=== PATIENT | male | born 1935 | race Caucasian/White ===

== ENCOUNTER 2017-12-08 13:15 | Emergency (ER) | payer MEDICARE, OTHER ==
[2017-12-08] MEDS ORDERED: Sulfamethoxazole/Trimethoprim 800-160 MG Tab PO ONE (14:53)
--- NOTE | 2017-12-09 01:00 | ER ---
DATE SEEN: 12/08/2017 REASON FOR VISIT: Swelling of the leg. HISTORY OF PRESENT ILLNESS: This is an 82-year-old male with swelling of the right leg for the last week or so. The swelling has been associated with redness and weeping wounds. This morning, he developed chills and felt hot. REVIEW OF SYSTEMS: He has chronic shortness of breath. He denies headache or chest pain. PAST MEDICAL HISTORY: CHF, he had a stroke in October of 2017, chronic renal failure with a creatinine of 1.6 baseline, BPH, CAD, and peripheral vascular disease. ALLERGIES: None. MEDICATIONS: Medications were printed from the [facility], and they are noted in the electronic record. PHYSICAL EXAMINATION: GENERAL: He is not in any cardiopulmonary distress. VITAL SIGNS: He has a normal temperature, pulse of 78, blood pressure is normal, and oxygenation 91% on room air. ENT: Normal. Neck: No JVD. CHEST: End-expiratory rhonchi. CARDIOVASCULAR: Regularly irregular rhythm. No murmurs. EXTREMITIES: Ceqd-md-wgltuwsk peripheral edema. The right leg has redness, tenderness, and blisters and is slightly warm. LABORATORIES: White cell count 12.2. CRP is 3.3. Creatinine is 2.1. BNP is pending. IMPRESSION: 1. Cellulitis, right lower extremity. 2. Congestive heart failure. 3. Peripheral vascular disease. PLAN: 1. The patient is already on Eliquis and Lasix. I increased the Lasix to 40 mg b.i.d. 2. I started Bactrim DS 1 tablet b.i.d. 3. I recommended elevation of the legs, compression with wrapping, and a followup to be arranged with Dr. Newell tomorrow. TIME SEEN: 1450 hours. /[id number] TN/MODL
== END 2017-12-08 15:15 | disposition home or self-care (01) ==
LOC: FB.ED 13:15
DX: L03.115 Cellulitis of right lower limb (principal); I50.9 Heart failure, unspecified; I73.9 Peripheral vascular disease, unspecified; N18.9 Chronic kidney disease, unspecified
CPT/HCPCS: 16020; 36415; 80053; 83880; 85025; 86140; 99283; A9270

== ENCOUNTER 2017-12-09 17:17 | Inpatient (IN) | payer MEDICARE, OTHER ==
[2017-12-09] MEDS ORDERED: Acetaminophen 325 MG Tab PO PRN (17:59)
[2017-12-09] MEDS ORDERED: Ondansetron 4 MG Tab.DIS PO PRN (17:59)
--- NOTE | 2017-12-09 18:09 | PCM.HP ---
H&P History of Present Illness - General Date of Service: 12/09/17 Admit Problem/Dx: Admission Diagnosis/Problem Admission Diagnosis/Problem Cellulitis Source of Information: Patient, Old Records History Limitations: Reports: No Limitations - History of Present Illness Initial Comments - Free Text/Narative: Been ordered is an 82-year-old male that came into the clinic to see Dr. Newell because of fever, chills and redness of both legs. I had seen him here at the hospital yesterday treated him for cellulitis, with oral Bactrim.I also increased his Lasix dose,due to CHF exacerbation, but his symptoms have worsened. His right leg is worse than the left ,in terms or redness,and swelling. His symptoms started insidiously and have progressively gotten worse since Friday. He has a history of severe peripheral vascular disease, CHF ,both poorly controlled & chronic kidney disease with a baseline creatinine of 1.5. He has stable hypertension. Of note he was recently hospitalized at [facility] because of left acute ischemic MCA stroke. He recovered fairly well and is currently on long-term anticoagulation -Eliquis. - Related Data Allergies/Adverse Reactions: Allergies Allergy/AdvReac Type Severity Reaction Status Date / Time No Known Allergies Allergy Verified 12/09/17 17:46 Home Medications: Home Meds Acetaminophen [Tylenol] 325 mg PO Q4H PRN 12/08/17 [History] Apixaban [Eliquis] 2.5 mg PO BID 12/08/17 [History] Aspirin 81 mg PO DAILY 12/08/17 [History] Cholecalciferol (Vitamin D3) [Vitamin D3] 2,000 unit PO DAILY 12/08/17 [History] Docusate Sodium [Colace] 100 mg PO DAILY 12/08/17 [History] Finasteride [Proscar] 5 mg PO DAILY 12/08/17 [History] Furosemide [Lasix] 40 mg PO DAILY 12/08/17 [History] Metoprolol Succinate [Toprol XL] 25 mg PO DAILY 12/08/17 [History] Multivit-Min/FA/Lycopene/Lut [Centrum Silver Tablet] 1 tab PO DAILY 12/08/17 [ History] Tamsulosin [Flomax] 0.8 mg PO BEDTIME 12/08/17 [History] atorvaSTATin [Lipitor] 40 mg PO DAILY 12/08/17 [History] Past Medical History HEENT History: Reports: Hard of Hearing, Impaired Vision Respiratory History: Reports: SOB Neurological History: Reports: CVA Other Neuro History: November 02, 2017-stroke Social & Family History - Family History Family Medical History: Unobtainable - Tobacco Use Smoking Status *Q: Never Smoker Second Hand Smoke Exposure: No - Caffeine Use Caffeine Use: Reports: Coffee - Recreational Drug Use Recreational Drug Use: No H&P Review of Systems - Review of Systems: Review Of Systems: ROS reveals no pertinent complaints other than HPI. Exam - Exam Exam: See Below - Vital Signs Weight: 91.172 kg - Exam Quality Assessment: No: Supplemental Oxygen General: Alert, Oriented, 4 HEENT: PERRLA, Hearing Intact, Mucosa Moist & [place], Nares Patent, Normal Nasal Septum, Posterior Pharynx Clear, Conjunctiva Clear, EOMI, EACs Clear, TMs Clear Neck: Supple, Trachea Midline, 2 Lungs: Crackles, Rales Cardiovascular: Regular Rate, Regular Rhythm GI/Abdominal Exam: Normal Bowel Sounds, Soft, Non-Tender, No Organomegaly, No Distention, No Abnormal Bruit, No Mass, Pelvis Stable (Male) Exam: Deferred Rectal (Males) Exam: Deferred Back Exam: Normal Inspection, Full Range of Motion, NT Extremities: Pedal Edema, Increased Warmth, Mottled, Redness Skin: Warm, Dry, Intact Neurological: Cranial Nerves Intact, Reflexes Equal Bilateral Neuro Extensive - Mental Status: Alert, Oriented x3, Normal Mood/Affect, Normal Cognition Neuro Extensive - Motor, Sensory, Reflexes: CN II-XII Intact, Normal Gait, Normal Reflexes Psychiatric: Alert, Normal Affect, Normal Mood - Problem List (1) Cellulitis SNOMED Code(s): 657005106 ICD Code: L03.90 - CELLULITIS, UNSPECIFIED Status: Acute Current Visit: Yes Qualifiers: Site of cellulitis: extremity Laterality: unspecified laterality (2) HTN (hypertension) SNOMED Code(s): 98275430 ICD Code: I10 - ESSENTIAL (PRIMARY) HYPERTENSION Status: Acute Current Visit: Yes Qualifiers: Hypertension type: essential hypertension Qualified Code(s): I10 - Essential (primary) hypertension (3) CHF (congestive heart failure) SNOMED Code(s): 24607057 ICD Code: I50.9 - HEART FAILURE, UNSPECIFIED Status: Acute Current Visit : Yes Qualifiers: Heart failure type: systolic (4) CKD (chronic kidney disease) SNOMED Code(s): 635372714 ICD Code: N18.9 - CHRONIC KIDNEY DISEASE, UNSPECIFIED Status: Chronic Current Visit: Yes Qualifiers: Chronic kidney disease stage: stage 3 (moderate) Qualified Code(s): N18.3 - Chronic kidney disease, stage 3 (moderate) (5) PAD (peripheral artery disease) SNOMED Code(s): 527825417, 317831606 ICD Code: I73.9 - PERIPHERAL VASCULAR DISEASE, UNSPECIFIED Status: Chronic Current Visit: Yes (6) H/O: CVA (cerebrovascular accident) SNOMED Code(s): 507338097 ICD Code: Z86.73 - PRSNL HX OF TIA (TIA), AND CEREB INFRC W/O RESID DEFICITS Status: Acute Current Visit: Yes (7) Afib SNOMED Code(s): 86012107 ICD Code: I48.91 - UNSPECIFIED ATRIAL FIBRILLATION Status: Acute Current Visit: Yes Qualifiers: Atrial fibrillation type: persistent Qualified Code(s): I48.1 - Persistent atrial fibrillation (8) CAD (coronary artery disease) SNOMED Code(s): 71368487 ICD Code: I25.10 - ATHSCL HEART DISEASE OF [place] CORONARY ARTERY W/O ANG PCTRS Status: Chronic Current Visit: Yes Qualifiers: Coronary Disease-Associated Artery/Lesion type: bypass graft (9) HLD (hyperlipidemia) SNOMED Code(s): 87615505 ICD Code: E78.5 - HYPERLIPIDEMIA, UNSPECIFIED Status: Chronic Current Visit: Yes Qualifiers: Hyperlipidemia type: unspecified Qualified Code(s): E78.5 - Hyperlipidemia , unspecified (10) LAWRENCE (obstructive sleep apnea) SNOMED Code(s): 34476685 ICD Code: G47.33 - OBSTRUCTIVE SLEEP APNEA (ADULT) (PEDIATRIC) Status: Acute Current Visit: Yes (11) Anticoagulant long-term use SNOMED Code(s): 369313873 ICD Code: Z79.01 - MCFP (CURRENT) USE OF ANTICOAGULANTS Status: Acute Current Visit: Yes (12) BPH (benign prostatic hyperplasia) SNOMED Code(s): 364858354 ICD Code: N40.0 - BENIGN PROSTATIC HYPERPLASIA WITHOUT LOWER URINRY TRACT SYMP Status: Acute Current Visit: Yes Qualifiers: Lower urinary tract symptom presence: symptoms present Lower urinary tract symptom detail: unspecified Qualified Code(s): N40.1 - Benign prostatic hyperplasia with lower urinary tract symptoms Problem List Initiated/Reviewed/Updated: Yes Orders Last 24hrs: Active Orders 24 hr Category Date Time Status Patient Status [ADT] Routine ADT 12/09/17 18:00 Ordered EKG Documentation Completion [RC] ASDIRECTED Care 12/09/17 18:02 Ordered Height and Weight [RC] DAILY Care 12/09/17 17:59 Ordered Intake and Output [RC] QSHIFT Care 12/09/17 18:00 Ordered Oxygen Therapy [RC] PRN Care 12/09/17 18:00 Ordered Up to Chair [RC] ASDIRECTED Care 12/09/17 17:59 Ordered VTE/DVT Education [RC] Per Unit Routine Care 12/09/17 18:00 Ordered Vital Signs [RC] Q4H Care 12/09/17 18:00 Ordered Heart Healthy Diet [DIET] Diet 12/09/17 Breakfast Ordered Chest 2V [CR] Stat Exams 12/09/17 17:59 Ordered BASIC METABOLIC PANEL,BMP [CHEM] AM Lab 12/10/17 05:11 Ordered BASIC METABOLIC PANEL,BMP [CHEM] Stat Lab 12/09/17 17:59 Ordered CBC WITH AUTO DIFF [HEME] AM Lab 12/10/17 05:11 Ordered CBC WITH AUTO DIFF [HEME] Stat Lab 12/09/17 17:59 Ordered CULTURE BLOOD [BC] Urgent Lab 12/09/17 18:02 Ordered CULTURE BLOOD [BC] Urgent Lab 12/09/17 18:02 Ordered PRO B-TYPE NATRIUR PEPT,BNPPRO [CHEM] DAILY Lab 12/10/17 05:11 Ordered PRO B-TYPE NATRIUR PEPT,BNPPRO [CHEM] DAILY Lab 12/11/17 05:11 Ordered PRO B-TYPE NATRIUR PEPT,BNPPRO [CHEM] DAILY Lab 12/12/17 05:11 Ordered Acetaminophen [Tylenol] Med 12/09/17 17:59 Ordered 650 mg PO Q4H PRN Ondansetron [Zofran ODT] Med 12/09/17 17:59 Ordered 4 mg PO Q4H PRN Sodium Chloride 0.9% [Saline Flush] Med 12/09/17 17:59 Ordered 10 ml FLUSH ASDIRECTED PRN Vancomycin 1,000 mg Med 12/09/17 18:00 Ordered Sodium Chloride 0.9% [Normal Saline] 250 ml IV Q12H ceFAZolin [Ancef] 2 gm Med 12/09/17 18:00 Ordered Premix Bag 1 bag IV Q8H Blood Culture x2 Reflex Set [OM.PC] Urgent Oth 12/09/17 17:59 Ordered Peripheral IV Insertion Adult [OM.PC] Routine Oth 12/09/17 17:59 Ordered Resuscitation Status Routine Resus Stat 12/09/17 17:59 Ordered EKG 12 Lead [EK] Stat Ther 12/09/17 17:59 Ordered Medication Orders Acetaminophen (Tylenol) 650 mg PO Q4H PRN PRN Reason: Pain (Mild 1-3)/fever Cefazolin Sodium/Dextrose 2 gm (/ Premix) 50 mls @ 100 mls/hr IV Q8H ANIA Vancomycin HCl 1,000 mg/ (Sodium Chloride) 250 mls @ 167 mls/hr IV Q12H ANIA Ondansetron HCl (Zofran Odt) 4 mg PO Q4H PRN PRN Reason: nausea, able to take PO Sodium Chloride (Saline Flush) 10 ml FLUSH ASDIRECTED PRN PRN Reason: Keep Vein Open Assessment/Plan Comment:: We'll admit Mr. Dunbar for IV antibiotic therapy. Before initiation, of ordered for 2 sets of blood cultures and a repeat blood count. I will start with Ancef and vancomycin(to be dosed by pharmacy) to cover for possibility of MRSA. Also give him IV diuresis,with Lasix. The rest of his home medications will be continued as appropriate.
[2017-12-09] MEDS: Furosemide 40 MG/4 ML VIAL IVPUSH SCH (19:08)
[2017-12-09] MEDS: ceFAZolin 2 GM in Premix Bag 1 BAG IV SCH (19:11)
[2017-12-09] MEDS: Sodium Chloride 0.9% 10 ML Syringe FLUSH PRN ×4 (19:12→22:35)
[2017-12-09] MEDS ORDERED: Apixaban 2.5 MG Tab PO SCH (21:45)
[2017-12-10] MEDS: ceFAZolin 2 GM in Premix Bag 1 BAG IV SCH ×2 (02:28→09:49)
[2017-12-10] MEDS: Sodium Chloride 0.9% 10 ML Syringe FLUSH PRN ×8 (03:01→22:49)
[2017-12-10] MEDS ORDERED: Metolazone 5 MG Tab PO ONE (08:06)
--- NOTE | 2017-12-10 08:09 | PCM.PN ---
- General Info Date of Service: 12/10/17 Subjective Update: Mr. Dunbar slept well overnight. He has no fever or chills neither does he have any chest pain. He is intermittently short of breath. The leg swelling and redness persists. - Review of Systems HEENT: Reports: No Symptoms Gastrointestinal: Reports: No Symptoms Genitourinary: Reports: No Symptoms - Patient Data Vitals - Most Recent: Last Vital Signs Temp 97.6 F 12/10/17 02:00 Pulse 52 L 12/10/17 02:00 Resp 18 12/10/17 02:00 BP 127/68 12/10/17 02:00 Pulse Ox 96 12/10/17 02:00 Weight - Most Recent: 90.718 kg I&O - Last 24 Hours: Intake & Output 12/09/17 12/10/17 12/10/17 22:59 06:59 14:59 Intake Total 700 200 Output Total 450 Balance 700 -250 Lab Results Last 24 Hours: Laboratory Results - last 24 hr 12/09/17 12/09/17 12/10/17 Range/Units 18:25 18:25 06:34 WBC 11.8 10.7 (4.5-12.0) X10-3/uL RBC 4.47 4.40 (4.30-5.75) x10(6)uL Hgb 14.6 14.4 (11.5-15.5) g/dL Hct 43.3 43.4 (30.0-51.3) % MCV 96.8 H 98.7 H (80-96) fL MCH 32.6 32.8 (27.7-33.6) pg MCHC 33.6 33.2 (32.2-35.4) g/dL RDW 14.0 14.1 (11.5-15.5) % Plt Count 88 L 90 L (125-369) X10(3)uL MPV 11.0 H 11.3 H (7.4-10.4) fL Neut % (Auto) 84.8 H (46-82) % Lymph % (Auto) 5.7 L (13-37) % [place] % (Auto) 8.8 (4-12) % Eos % (Auto) 0 L (1.0-5.0) % Baso % (Auto) 0 (0-2) % Neut # (Auto) 10.1 H (1.6-8.3) # Lymph # (Auto) 0.7 (0.6-5.0) # [place] # (Auto) 1.0 (0.0-1.3) # Eos # (Auto) 0.0 (0.0-0.8) # Baso # (Auto) 0.0 (0.0-0.2) # Add Manual Diff Yes Neutrophils % (Manual) 89 H (46-82) % Lymphocytes % (Manual) 5 L (13-37) % Monocytes % (Manual) 6 (4-12) % Polychromasia Sodium 139 (135-145) mmol/L Potassium 3.5 (3.5-5.3) mmol/L Chloride 100 (100-110) mmol/L Carbon Dioxide 29 (21-32) mmol/L BUN 50 H (7-18) mg/dL Creatinine 2.2 H* (0.70-1.30) mg/dL Est Cr Clr Drug Dosing 30.10 mL/min Estimated GFR (MDRD) 29 L (>60) BUN/Creatinine Ratio 22.7 H (9-20) Glucose 108 (80-116) mg/dL Calcium 9.4 (8.6-10.2) mg/dL NT-Pro-B Natriuret Pep (<=450) pg/mL 12/10/17 12/10/17 Range/Units 06:34 06:34 WBC (4.5-12.0) X10-3/uL RBC (4.30-5.75) x10(6)uL Hgb (11.5-15.5) g/dL Hct (30.0-51.3) % MCV (80-96) fL MCH (27.7-33.6) pg MCHC (32.2-35.4) g/dL RDW (11.5-15.5) % Plt Count (125-369) X10(3)uL MPV (7.4-10.4) fL Neut % (Auto) (46-82) % Lymph % (Auto) (13-37) % [place] % (Auto) (4-12) % Eos % (Auto) (1.0-5.0) % Baso % (Auto) (0-2) % Neut # (Auto) (1.6-8.3) # Lymph # (Auto) (0.6-5.0) # [place] # (Auto) (0.0-1.3) # Eos # (Auto) (0.0-0.8) # Baso # (Auto) (0.0-0.2) # Add Manual Diff Neutrophils % (Manual) (46-82) % Lymphocytes % (Manual) (13-37) % Monocytes % (Manual) (4-12) % Polychromasia Sodium 140 (135-145) mmol/L Potassium 3.5 (3.5-5.3) mmol/L Chloride 101 (100-110) mmol/L Carbon Dioxide 29 (21-32) mmol/L BUN 50 H (7-18) mg/dL Creatinine 2.3 H* (0.70-1.30) mg/dL Est Cr Clr Drug Dosing 28.79 mL/min Estimated GFR (MDRD) 27 L (>60) BUN/Creatinine Ratio 21.7 H (9-20) Glucose 100 (80-116) mg/dL Calcium 9.1 (8.6-10.2) mg/dL NT-Pro-B Natriuret Pep 44717 H* (<=450) pg/mL Med Orders - Current: Current Medications Acetaminophen (Tylenol) 650 mg PO Q4H PRN PRN Reason: Pain (Mild 1-3)/fever Last Admin: 12/09/17 20:55 Dose: 650 mg Apixaban (Eliquis) 2.5 mg PO BID ANIA Last Admin: 12/09/17 22:28 Dose: 2.5 mg Furosemide (Lasix) 40 mg IVPUSH BIDDIURETIC [facility] Last Admin: 12/09/17 19:08 Dose: 40 mg Cefazolin Sodium/Dextrose 2 gm (/ Premix) 50 mls @ 100 mls/hr IV Q8H [facility] Last Admin: 12/10/17 02:28 Dose: 100 mls/hr Vancomycin HCl 1,000 mg/ (Sodium Chloride) 250 mls @ 167 mls/hr IV Q12H [facility] Vancomycin HCl 1,000 mg/Vancomycin HCl 500 mg/ Sodium Chloride 500 mls @ 333.333 mls/hr IV Q36H [facility] Metolazone (Zaroxolyn) 5 mg PO ONETIME ONE Stop: 12/10/17 08:07 Ondansetron HCl (Zofran Odt) 4 mg PO Q4H PRN PRN Reason: nausea, able to take PO Sodium Chloride (Saline Flush) 10 ml FLUSH ASDIRECTED PRN PRN Reason: Keep Vein Open Last Admin: 12/10/17 03:01 Dose: 10 ml Tamsulosin HCl (Flomax) 0.8 mg PO BEDTIME ANIA Discontinued Medications Vancomycin HCl 1,000 mg/Vancomycin HCl 500 mg/ Sodium Chloride 500 mls @ 333.333 mls/hr IV ONETIME ONE Stop: 12/09/17 20:29 Last Admin: 12/09/17 20:45 Dose: 333.333 mls/hr - Exam Quality Assessment: No: Supplemental Oxygen General: Alert, Oriented HEENT: Pupils Equal Lungs: Clear to Auscultation, Rales Cardiovascular: Irregular Rhythm GI/Abdominal Exam: Normal Bowel Sounds, Soft, Non-Tender, No Organomegaly, No Distention, No Abnormal Bruit, No Mass, Pelvis Stable Extremities: Pedal Edema, Slow Capillary Refill, Leg Pain, Mottled, Pallor, Redness Psy/Mental Status: Alert, Normal Affect, Normal Mood - Problem List & Annotations (1) Cellulitis SNOMED Code(s): 805013775 Code(s): L03.90 - CELLULITIS, UNSPECIFIED Status: Acute Current Visit: Yes Qualifiers: Site of cellulitis: extremity Laterality: unspecified laterality (2) HTN (hypertension) SNOMED Code(s): 72959687 Code(s): I10 - ESSENTIAL (PRIMARY) HYPERTENSION Status: Acute Current Visit: Yes Qualifiers: Hypertension type: essential hypertension Qualified Code(s): I10 - Essential (primary) hypertension (3) CHF (congestive heart failure) SNOMED Code(s): 62380055 Code(s): I50.9 - HEART FAILURE, UNSPECIFIED Status: Acute Current Visit: Yes Qualifiers: Heart failure type: systolic (4) CKD (chronic kidney disease) SNOMED Code(s): 997616889 Code(s): N18.9 - CHRONIC KIDNEY DISEASE, UNSPECIFIED Status: Chronic Current Visit: Yes Qualifiers: Chronic kidney disease stage: stage 3 (moderate) Qualified Code(s): N18.3 - Chronic kidney disease, stage 3 (moderate) (5) PAD (peripheral artery disease) SNOMED Code(s): 157583087, 256184539 Code(s): I73.9 - PERIPHERAL VASCULAR DISEASE, UNSPECIFIED Status: Chronic Current Visit: Yes (6) H/O: CVA (cerebrovascular accident) SNOMED Code(s): 704037681 Code(s): Z86.73 - PRSNL HX OF TIA (TIA), AND CEREB INFRC W/O RESID DEFICITS Status: Acute Current Visit: Yes (7) Afib SNOMED Code(s): 27874843 Code(s): I48.91 - UNSPECIFIED ATRIAL FIBRILLATION Status: Acute Current Visit: Yes Qualifiers: Atrial fibrillation type: persistent Qualified Code(s): I48.1 - Persistent atrial fibrillation (8) CAD (coronary artery disease) SNOMED Code(s): 28681475 Code(s): I25.10 - ATHSCL HEART DISEASE OF [place] CORONARY ARTERY W/O ANG PCTRS Status: Chronic Current Visit: Yes Qualifiers: Coronary Disease-Associated Artery/Lesion type: bypass graft (9) HLD (hyperlipidemia) SNOMED Code(s): 20546281 Code(s): E78.5 - HYPERLIPIDEMIA, UNSPECIFIED Status: Chronic Current Visit: Yes Qualifiers: Hyperlipidemia type: unspecified Qualified Code(s): E78.5 - Hyperlipidemia , unspecified (10) LAWRENCE (obstructive sleep apnea) SNOMED Code(s): 25287336 Code(s): G47.33 - OBSTRUCTIVE SLEEP APNEA (ADULT) (PEDIATRIC) Status: Acute Current Visit: Yes (11) Anticoagulant long-term use SNOMED Code(s): 048016077 Code(s): Z79.01 - SHELTER (CURRENT) USE OF ANTICOAGULANTS Status: Acute Current Visit: Yes (12) BPH (benign prostatic hyperplasia) SNOMED Code(s): 648105986 Code(s): N40.0 - BENIGN PROSTATIC HYPERPLASIA WITHOUT LOWER URINRY TRACT SYMP Status: Acute Current Visit: Yes Qualifiers: Lower urinary tract symptom presence: symptoms present Lower urinary tract symptom detail: unspecified Qualified Code(s): N40.1 - Benign prostatic hyperplasia with lower urinary tract symptoms - Problem List Review Problem List Initiated/Reviewed/Updated: Yes - My Orders Last 24 Hours: My Active Orders 12/09/17 17:59 Height and Weight [RC] 07 Up to Chair [RC] 09,13,17,21 Chest 2V [CR] Stat Acetaminophen [Tylenol] 650 mg PO Q4H PRN Ondansetron [Zofran ODT] 4 mg PO Q4H PRN Sodium Chloride 0.9% [Saline Flush] 10 ml FLUSH ASDIRECTED PRN Blood Culture x2 Reflex Set [OM.PC] Urgent Peripheral IV Insertion Adult [OM.PC] Routine Resuscitation Status Routine EKG 12 Lead [EK] Stat 12/09/17 18:00 Patient Status [ADT] Routine Intake and Output [RC] 06,14,22 Oxygen Therapy [RC] PRN VTE/DVT Education [RC] Per Unit Routine Vital Signs [RC] 04,08,12,16,20,00 Vancomycin 1,000 mg Sodium Chloride 0.9% [Normal Saline] 250 ml IV Q12H ceFAZolin [Ancef] 2 gm Premix Bag 1 bag IV Q8H 12/09/17 18:02 EKG Documentation Completion [RC] ASDIRECTED 12/09/17 18:25 CULTURE BLOOD [BC] Urgent 12/09/17 18:30 Furosemide [Lasix] 40 mg IVPUSH BIDDIURETIC 12/09/17 18:35 CULTURE BLOOD [BC] Urgent 12/09/17 21:45 Apixaban [Eliquis] 2.5 mg PO BID 12/10/17 08:06 Metolazone [Zaroxolyn] 5 mg PO ONETIME ONE 12/10/17 21:00 Tamsulosin [Flomax] 0.8 mg PO BEDTIME 12/11/17 05:11 BASIC METABOLIC PANEL,BMP [CHEM] AM CBC WITH AUTO DIFF [HEME] AM PRO B-TYPE NATRIUR PEPT,BNPPRO [CHEM] DAILY 12/11/17 07:00 Vancomycin 1,000 mg Vancomycin 500 mg Sodium Chloride 0.9% [Normal Saline] 500 ml IV Q36H 12/12/17 05:11 PRO B-TYPE NATRIUR PEPT,BNPPRO [CHEM] DAILY - Plan Plan:: BNP is markedly elevated. I will continued IV Lasix and add one-time dose of Zaroxolyn. His Echo from October showes global hypokinesis and EF of 20%.I'll continue this current treatment of vancomycin dosed by pharmacy, and Ancef every 8 hours. I did recommend elevation of the extremities, and will plan to follow basic profile CBC and BNP in the morning.
[2017-12-10] MEDS: Aspirin 81 MG Tab.Chew PO SCH (09:35)
[2017-12-10] MEDS: Cholecalciferol (Vitamin D3) 1,000 Unit Tab PO SCH (09:36)
[2017-12-10] MEDS: Finasteride 5 MG Tab PO SCH (09:36)
[2017-12-10] MEDS: Apixaban 5 MG Tab PO SCH ×2 (09:36→20:47)
[2017-12-10] MEDS: Docusate Sodium 100 MG Cap PO SCH (09:36)
[2017-12-10] MEDS: Metoprolol Succinate 25 MG Tab.ER PO SCH (09:36)
[2017-12-10] MEDS: Furosemide 40 MG/4 ML VIAL IVPUSH SCH ×2 (09:49→14:17)
--- NOTE | 2017-12-10 12:13 | CR ---
INDICATION: Short of breath. CHEST: PA and lateral views of the chest were obtained 12-09-17. No comparison was available. Bibasilar pleural parenchymal changes are noted likely representing pneumonia and pleuritis. However the upper lung pulmonary vasculature is somewhat prominent and the heart is enlarged with mitral valve replacement-median sternotomy. The possibility of CHF is also a consideration. Infiltration also appears to be minimal in the right upper lobe with pleuritis, there should be some thickening of the minor fissure. Bridging hyperostotic changes noted in the mid to lower thoracic spine. Hyperaeration, prominent PA diameter, and flattened diaphragm leaves suggest COPD. IMPRESSION: 1. ASHD, cardiomegaly, mitral valve replacement with possible CHF. 2. Bibasilar pleural parenchymal changes made on the basis of pneumonia and pleuritis-correlate clinically. 3. 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 5. Probable minimal patchy pneumonia and pleuritis in the right upper lobe. MTDD
[2017-12-10] MEDS: Acetaminophen 325 MG Tab PO PRN (16:54)
[2017-12-10] MEDS: Tamsulosin 0.4 MG Cap.ER PO SCH (20:48)
[2017-12-10] MEDS: Vancomycin 500 MG, Vancomycin 750 MG in Sodium Chloride 0.9% 250 ML IV SCH (20:58)
[2017-12-10] MEDS: ceFAZolin 1 GM Vial IVPUSH SCH (21:21)
[2017-12-11] MEDS: Apixaban 5 MG Tab PO SCH ×2 (08:17→20:35)
[2017-12-11] MEDS: Aspirin 81 MG Tab.Chew PO SCH (08:17)
[2017-12-11] MEDS: Furosemide 40 MG/4 ML VIAL IVPUSH SCH (08:17)
[2017-12-11] MEDS: Cholecalciferol (Vitamin D3) 1,000 Unit Tab PO SCH (08:18)
[2017-12-11] MEDS: Finasteride 5 MG Tab PO SCH (08:18)
[2017-12-11] MEDS: Docusate Sodium 100 MG Cap PO SCH (08:18)
[2017-12-11] MEDS: Sodium Chloride 0.9% 10 ML Syringe FLUSH PRN ×4 (08:22→22:26)
[2017-12-11] MEDS: Metoprolol Succinate 25 MG Tab.ER PO SCH (08:22)
--- NOTE | 2017-12-11 08:54 | PCM.PN ---
- General Info Date of Service: 12/11/17 Subjective Update: Then has had significant diuresis. Pain and swelling of both legs is improved. Shortness of breath has also improved. He has normal fever chills - Review of Systems HEENT: Reports: No Symptoms Pulmonary: Reports: Cough Cardiovascular: Reports: Dyspnea on Exertion Gastrointestinal: Reports: No Symptoms Genitourinary: Reports: No Symptoms - Patient Data Vitals - Most Recent: Last Vital Signs Temp 98 F 12/11/17 08:00 Pulse 80 12/11/17 08:22 Resp 18 12/11/17 08:00 BP 122/46 L 12/11/17 08:22 Pulse Ox 99 12/11/17 08:00 Weight - Most Recent: 89.414 kg I&O - Last 24 Hours: Intake & Output 12/10/17 12/11/17 12/11/17 22:59 06:59 14:59 Intake Total 450 400 Output Total 1150 850 Balance -700 -450 Lab Results Last 24 Hours: Laboratory Results - last 24 hr 12/11/17 12/11/17 12/11/17 Range/Units 06:00 06:00 06:00 WBC 7.1 (4.5-12.0) X10-3/uL RBC 4.08 L (4.30-5.75) x10(6)uL Hgb 12.9 (11.5-15.5) g/dL Hct 39.7 (30.0-51.3) % MCV 97.2 H (80-96) fL MCH 31.6 (27.7-33.6) pg MCHC 32.5 (32.2-35.4) g/dL RDW 13.9 (11.5-15.5) % Plt Count 89 L (125-369) X10(3)uL MPV 10.9 H (7.4-10.4) fL Neut % (Auto) 80.5 (46-82) % Lymph % (Auto) 7.7 L (13-37) % [place] % (Auto) 9.2 (4-12) % Eos % (Auto) 2 (1.0-5.0) % Baso % (Auto) 0 (0-2) % Neut # (Auto) 5.7 (1.6-8.3) # Lymph # (Auto) 0.5 L (0.6-5.0) # [place] # (Auto) 0.7 (0.0-1.3) # Eos # (Auto) 0.2 (0.0-0.8) # Baso # (Auto) 0.0 (0.0-0.2) # Sodium 139 (135-145) mmol/L Potassium 3.2 L (3.5-5.3) mmol/L Chloride 101 (100-110) mmol/L Carbon Dioxide 32 (21-32) mmol/L BUN 49 H (7-18) mg/dL Creatinine 2.2 H* (0.70-1.30) mg/dL Est Cr Clr Drug Dosing 30.10 mL/min Estimated GFR (MDRD) 29 L (>60) BUN/Creatinine Ratio 22.3 H (9-20) Glucose 107 (80-116) mg/dL Calcium 9.1 (8.6-10.2) mg/dL NT-Pro-B Natriuret Pep 40656 H* (<=450) pg/mL Sarkis Results Last 24 Hours: Microbiology 12/09/17 18:35 Aerobic Blood Culture - Preliminary Blood - Venous - Lab Draw NO GROWTH AFTER 1 DAY Anaerobic Blood Culture - Preliminary NO GROWTH AFTER 1 DAY 12/09/17 18:25 Aerobic Blood Culture - Preliminary Blood - Venous NO GROWTH AFTER 1 DAY Anaerobic Blood Culture - Preliminary NO GROWTH AFTER 1 DAY Med Orders - Current: Current Medications Acetaminophen (Tylenol) 325 mg PO Q4H PRN PRN Reason: Pain Last Admin: 12/10/17 16:54 Dose: 325 mg Apixaban (Eliquis) 2.5 mg PO BID [facility] Last Admin: 12/11/17 08:17 Dose: 2.5 mg Aspirin (Aspirin) 81 mg PO DAILY [facility] Last Admin: 12/11/17 08:17 Dose: 81 mg Cefazolin Sodium (Ancef) 1 gm IVPUSH Q12H [facility] Last Admin: 12/10/17 21:21 Dose: 1 gm Cholecalciferol (Vitamin D3) 2,000 units PO DAILY [facility] Last Admin: 12/11/17 08:18 Dose: 2,000 units Docusate Sodium (Colace) 100 mg PO DAILY [facility] Last Admin: 12/11/17 08:18 Dose: 100 mg Finasteride (Proscar) 5 mg PO DAILY [facility] Last Admin: 12/11/17 08:18 Dose: 5 mg Furosemide (Lasix) 20 mg PO BIDDIURETIC [facility] Vancomycin HCl 1,000 mg/ (Sodium Chloride) 250 mls @ 167 mls/hr IV Q12H [facility] Vancomycin HCl 500 mg/Vancomycin HCl 750 mg/ Sodium Chloride 250 mls @ 167 mls/ hr IV Q24H [facility] Last Admin: 12/10/17 20:58 Dose: 167 mls/hr Metoprolol Succinate (Toprol Xl) 25 mg PO DAILY [facility] Last Admin: 12/11/17 08:22 Dose: 25 mg Ondansetron HCl (Zofran Odt) 4 mg PO Q4H PRN PRN Reason: nausea, able to take PO Potassium Chloride (Klor-Con M20) 20 meq PO DAILY [facility] Sodium Chloride (Saline Flush) 10 ml FLUSH ASDIRECTED PRN PRN Reason: Keep Vein Open Last Admin: 12/11/17 08:22 Dose: 10 ml Tamsulosin HCl (Flomax) 0.8 mg PO BEDTIME [facility] Last Admin: 12/10/17 20:48 Dose: 0.8 mg Discontinued Medications Acetaminophen (Tylenol) 650 mg PO Q4H PRN PRN Reason: Pain (Mild 1-3)/fever Last Admin: 12/09/17 20:55 Dose: 650 mg Apixaban (Eliquis) 2.5 mg PO BID [facility] Last Admin: 12/09/17 22:28 Dose: 2.5 mg Furosemide (Lasix) 40 mg IVPUSH BIDDIURETIC [facility] Last Admin: 12/11/17 08:17 Dose: 40 mg Cefazolin Sodium/Dextrose 2 gm (/ Premix) 50 mls @ 100 mls/hr IV Q8H [facility] Last Admin: 12/10/17 09:49 Dose: 100 mls/hr Vancomycin HCl 1,000 mg/Vancomycin HCl 500 mg/ Sodium Chloride 500 mls @ 333.333 mls/hr IV ONETIME ONE Stop: 12/09/17 20:29 Last Admin: 12/09/17 20:45 Dose: 333.333 mls/hr Metolazone (Zaroxolyn) 5 mg PO ONETIME ONE Stop: 12/10/17 08:07 Last Admin: 12/10/17 09:35 Dose: 5 mg - Exam Quality Assessment: No: Supplemental Oxygen General: Alert, Oriented HEENT: Pupils Equal Lungs: Clear to Auscultation Cardiovascular: Regular Rate, Irregular Rhythm Extremities: Pedal Edema, Mottled, Pallor, Redness. No: Increased Warmth - Problem List & Annotations (1) Cellulitis SNOMED Code(s): 628912321 Code(s): L03.90 - CELLULITIS, UNSPECIFIED Status: Acute Current Visit: Yes Qualifiers: Site of cellulitis: extremity Laterality: unspecified laterality (2) HTN (hypertension) SNOMED Code(s): 13140577 Code(s): I10 - ESSENTIAL (PRIMARY) HYPERTENSION Status: Acute Current Visit: Yes Qualifiers: Hypertension type: essential hypertension Qualified Code(s): I10 - Essential (primary) hypertension (3) CHF (congestive heart failure) SNOMED Code(s): 64777260 Code(s): I50.9 - HEART FAILURE, UNSPECIFIED Status: Acute Current Visit: Yes Qualifiers: Heart failure type: systolic (4) CKD (chronic kidney disease) SNOMED Code(s): 612992630 Code(s): N18.9 - CHRONIC KIDNEY DISEASE, UNSPECIFIED Status: Chronic Current Visit: Yes Qualifiers: Chronic kidney disease stage: stage 3 (moderate) Qualified Code(s): N18.3 - Chronic kidney disease, stage 3 (moderate) (5) PAD (peripheral artery disease) SNOMED Code(s): 208826244, 483087537 Code(s): I73.9 - PERIPHERAL VASCULAR DISEASE, UNSPECIFIED Status: Chronic Current Visit: Yes (6) H/O: CVA (cerebrovascular accident) SNOMED Code(s): 077526442 Code(s): Z86.73 - PRSNL HX OF TIA (TIA), AND CEREB INFRC W/O RESID DEFICITS Status: Acute Current Visit: Yes (7) Afib SNOMED Code(s): 25301313 Code(s): I48.91 - UNSPECIFIED ATRIAL FIBRILLATION Status: Acute Current Visit: Yes Qualifiers: Atrial fibrillation type: persistent Qualified Code(s): I48.1 - Persistent atrial fibrillation (8) CAD (coronary artery disease) SNOMED Code(s): 82515870 Code(s): I25.10 - ATHSCL HEART DISEASE OF [place] CORONARY ARTERY W/O ANG PCTRS Status: Chronic Current Visit: Yes Qualifiers: Coronary Disease-Associated Artery/Lesion type: bypass graft (9) HLD (hyperlipidemia) SNOMED Code(s): 14842447 Code(s): E78.5 - HYPERLIPIDEMIA, UNSPECIFIED Status: Chronic Current Visit: Yes Qualifiers: Hyperlipidemia type: unspecified Qualified Code(s): E78.5 - Hyperlipidemia , unspecified (10) LAWRENCE (obstructive sleep apnea) SNOMED Code(s): 83782525 Code(s): G47.33 - OBSTRUCTIVE SLEEP APNEA (ADULT) (PEDIATRIC) Status: Acute Current Visit: Yes (11) Anticoagulant long-term use SNOMED Code(s): 526026965 Code(s): Z79.01 - FPC (CURRENT) USE OF ANTICOAGULANTS Status: Acute Current Visit: Yes (12) BPH (benign prostatic hyperplasia) SNOMED Code(s): 714488990 Code(s): N40.0 - BENIGN PROSTATIC HYPERPLASIA WITHOUT LOWER URINRY TRACT SYMP Status: Acute Current Visit: Yes Qualifiers: Lower urinary tract symptom presence: symptoms present Lower urinary tract symptom detail: unspecified Qualified Code(s): N40.1 - Benign prostatic hyperplasia with lower urinary tract symptoms - Problem List Review Problem List Initiated/Reviewed/Updated: Yes - My Orders Last 24 Hours: My Active Orders 12/10/17 08:22 Acetaminophen [Tylenol] 325 mg PO Q4H PRN 12/10/17 09:00 Apixaban [Eliquis] 2.5 mg PO BID Aspirin 81 mg PO DAILY Cholecalciferol (Vitamin D3) [Vitamin D3] 2,000 units PO DAILY Docusate Sodium [Colace] 100 mg PO DAILY Finasteride [Proscar] 5 mg PO DAILY Metoprolol Succinate [Toprol XL] 25 mg PO DAILY 12/10/17 21:00 Tamsulosin [Flomax] 0.8 mg PO BEDTIME Vancomycin 500 mg Vancomycin 750 mg Sodium Chloride 0.9% [Normal Saline] 250 ml IV Q24H 12/10/17 22:00 ceFAZolin [Ancef] 1 gm IVPUSH Q12H 12/11/17 09:00 Potassium Chloride [Klor-Con M20] 20 meq PO DAILY 12/11/17 14:00 Furosemide [Lasix] 20 mg PO BIDDIURETIC 12/12/17 05:11 CBC WITH AUTO DIFF [HEME] AM COMPREHENSIVE METABOLIC PN,CMP [CHEM] AM PRO B-TYPE NATRIUR PEPT,BNPPRO [CHEM] DAILY 12/12/17 20:30 VANCOMYCIN TROUGH [CHEM] Timed - Plan Plan:: Rick showed some improvement of his cellulitis. Edema of the legs has improved. He still has some blisters and redness, plus he has peripheral vascular disease that is severe,complicating the clinical picture.. He's atrial fibrillation stable is currently on anticoagulation. His creatinine has crept upwards to 2.2 from a baseline of 1.6 I believe this is probably due to the diuresis. I will reduce the dose of Lasix to 20 twice a day. I'll continue with IV vancomycin and Ancef. Continue with local wound care as well,and elevation.Repeat AM labs
[2017-12-11] MEDS: ceFAZolin 1 GM Vial IVPUSH SCH ×2 (10:36→22:21)
[2017-12-11] MEDS: Potassium Chloride 20 MEQ Tab.ER PO SCH (10:41)
[2017-12-11] MEDS: Acetaminophen 325 MG Tab PO PRN (13:50)
[2017-12-11] MEDS: Furosemide 20 MG Tab PO SCH (13:50)
[2017-12-11] MEDS: Vancomycin 500 MG, Vancomycin 750 MG in Sodium Chloride 0.9% 250 ML IV SCH (20:29)
[2017-12-11] MEDS: Tamsulosin 0.4 MG Cap.ER PO SCH (20:35)
[2017-12-12] MEDS: Acetaminophen 325 MG Tab PO PRN (03:21)
[2017-12-12] MEDS: Furosemide 20 MG Tab PO SCH ×2 (09:08→13:58)
[2017-12-12] MEDS: Docusate Sodium 100 MG Cap PO SCH (09:08)
[2017-12-12] MEDS: Potassium Chloride 20 MEQ Tab.ER PO SCH (09:08)
[2017-12-12] MEDS: Aspirin 81 MG Tab.Chew PO SCH (09:08)
[2017-12-12] MEDS: Finasteride 5 MG Tab PO SCH (09:08)
[2017-12-12] MEDS: Apixaban 5 MG Tab PO SCH ×2 (09:08→20:54)
[2017-12-12] MEDS: Cholecalciferol (Vitamin D3) 1,000 Unit Tab PO SCH (09:09)
[2017-12-12] MEDS: Metoprolol Succinate 25 MG Tab.ER PO SCH ×2 (09:58→10:18)
[2017-12-12] MEDS: Sodium Chloride 0.9% 10 ML Syringe FLUSH PRN (10:24)
[2017-12-12] MEDS: ceFAZolin 1 GM Vial IVPUSH SCH (10:25)
--- NOTE | 2017-12-12 16:47 | PCM.PN ---
- General Info Date of Service: 12/12/17 Subjective Update: Patient is an 82-year-old male currently on hospital day #4 for right lower extremity cellulitis. Patient is feeling fairly well. Pain in the right lower extremity is much improved. He's been getting vancomycin and Ancef IV. He's having no nausea, no vomiting, no diarrhea. The patient had about 2-3 weeks of increasing redness and warmth in the right lower extremity with some blistering and weeping. On morning he started to develop fevers and chills and presented to the emergency department. He was started on oral Bactrim, took 1 dose that evening and one dose the next morning and presented to the clinic for follow-up from his ER visit. He was no better at that time and in looking at the wound the doctor who saw him in the clinic felt he should be admitted so he was admitted for IV antibiotic management. He's done well throughout his hospitalization. - Patient Data Vitals - Most Recent: Last Vital Signs Temp 36.5 C 12/12/17 13:00 Pulse 79 12/12/17 15:48 Resp 20 12/12/17 15:48 BP 115/54 L 12/12/17 15:48 Pulse Ox 96 12/12/17 15:48 Weight - Most Recent: 88.564 kg I&O - Last 24 Hours: Intake & Output 12/12/17 12/12/17 12/12/17 06:59 14:59 22:59 Intake Total 600 Output Total 925 Balance -325 Lab Results Last 24 Hours: Laboratory Results - last 24 hr 12/12/17 12/12/17 12/12/17 Range/Units 06:55 06:55 06:55 WBC 5.9 (4.5-12.0) X10-3/uL RBC 4.01 L (4.30-5.75) x10(6)uL Hgb 13.2 (11.5-15.5) g/dL Hct 39.1 (30.0-51.3) % MCV 97.6 H (80-96) fL MCH 32.8 (27.7-33.6) pg MCHC 33.6 (32.2-35.4) g/dL RDW 13.8 (11.5-15.5) % Plt Count 85 L (125-369) X10(3)uL MPV 10.8 H (7.4-10.4) fL Add Manual Diff Yes Neutrophils % (Manual) 77 (46-82) % Band Neutrophils % 2 (0-6) % Lymphocytes % (Manual) 13 (13-37) % Monocytes % (Manual) 6 (4-12) % Eosinophils % (Manual) 2 (0-5) % Sodium 139 (135-145) mmol/L Potassium 3.3 L (3.5-5.3) mmol/L Chloride 102 (100-110) mmol/L Carbon Dioxide 30 (21-32) mmol/L BUN 50 H (7-18) mg/dL Creatinine 1.9 H (0.70-1.30) mg/dL Est Cr Clr Drug Dosing 34.85 mL/min Estimated GFR (MDRD) 34 L (>60) BUN/Creatinine Ratio 26.3 H (9-20) Glucose 113 (80-116) mg/dL Calcium 8.9 (8.6-10.2) mg/dL Total Bilirubin 1.2 (0.1-1.3) mg/dL AST 21 D (5-25) IU/L ALT 14 D (12-36) U/L Alkaline Phosphatase 89 (56-112) IU/L NT-Pro-B Natriuret Pep 66451 H* (<=450) pg/mL Total Protein 6.3 (6.0-8.0) g/dL Albumin 2.9 L (3.2-4.6) g/dL Globulin 3.4 g/dL Albumin/Globulin Ratio 0.9 Sarkis Results Last 24 Hours: Microbiology 12/09/17 18:35 Aerobic Blood Culture - Preliminary Blood - Venous - Lab Draw NO GROWTH AFTER 2 DAYS Anaerobic Blood Culture - Preliminary NO GROWTH AFTER 2 DAYS 12/09/17 18:25 Aerobic Blood Culture - Preliminary Blood - Venous NO GROWTH AFTER 2 DAYS Anaerobic Blood Culture - Preliminary NO GROWTH AFTER 2 DAYS Med Orders - Current: Current Medications Acetaminophen (Tylenol) 325 mg PO Q4H PRN PRN Reason: Pain Last Admin: 12/12/17 03:21 Dose: 325 mg Apixaban (Eliquis) 2.5 mg PO BID [facility] Last Admin: 12/12/17 09:08 Dose: 2.5 mg Aspirin (Aspirin) 81 mg PO DAILY [facility] Last Admin: 12/12/17 09:08 Dose: 81 mg Cephalexin (Keflex) 500 mg PO TID [facility] Cholecalciferol (Vitamin D3) 2,000 units PO DAILY [facility] Last Admin: 12/12/17 09:09 Dose: 2,000 units Docusate Sodium (Colace) 100 mg PO DAILY [facility] Last Admin: 12/12/17 09:08 Dose: 100 mg Finasteride (Proscar) 5 mg PO DAILY [facility] Last Admin: 12/12/17 09:08 Dose: 5 mg Furosemide (Lasix) 20 mg PO BIDDIURETIC [facility] Last Admin: 12/12/17 13:58 Dose: 20 mg Vancomycin HCl 1,000 mg/ (Sodium Chloride) 250 mls @ 167 mls/hr IV Q12H [facility] Metoprolol Succinate (Toprol Xl) 12.5 mg PO DAILY [facility] Last Admin: 12/12/17 10:18 Dose: 12.5 mg Ondansetron HCl (Zofran Odt) 4 mg PO Q4H PRN PRN Reason: nausea, able to take PO Potassium Chloride (Klor-Con M20) 20 meq PO DAILY [facility] Last Admin: 12/12/17 09:08 Dose: 20 meq Sodium Chloride (Saline Flush) 10 ml FLUSH ASDIRECTED PRN PRN Reason: Keep Vein Open Last Admin: 12/12/17 10:24 Dose: 10 ml Tamsulosin HCl (Flomax) 0.8 mg PO BEDTIME [facility] Last Admin: 12/11/17 20:35 Dose: 0.8 mg Trimethoprim/Sulfamethoxazole (Septra Ds) 1 tab PO BID [facility] Discontinued Medications Acetaminophen (Tylenol) 650 mg PO Q4H PRN PRN Reason: Pain (Mild 1-3)/fever Last Admin: 12/09/17 20:55 Dose: 650 mg Apixaban (Eliquis) 2.5 mg PO BID [facility] Last Admin: 12/09/17 22:28 Dose: 2.5 mg Cefazolin Sodium (Ancef) 1 gm IVPUSH Q12H [facility] Last Admin: 12/12/17 10:25 Dose: 1 gm Furosemide (Lasix) 40 mg IVPUSH BIDDIURETIC [facility] Last Admin: 12/11/17 08:17 Dose: 40 mg Cefazolin Sodium/Dextrose 2 gm (/ Premix) 50 mls @ 100 mls/hr IV Q8H [facility] Last Admin: 12/10/17 09:49 Dose: 100 mls/hr Vancomycin HCl 1,000 mg/Vancomycin HCl 500 mg/ Sodium Chloride 500 mls @ 333.333 mls/hr IV ONETIME ONE Stop: 12/09/17 20:29 Last Admin: 12/09/17 20:45 Dose: 333.333 mls/hr Vancomycin HCl 500 mg/Vancomycin HCl 750 mg/ Sodium Chloride 250 mls @ 167 mls/ hr IV Q24H [facility] Last Admin: 12/11/17 20:29 Dose: 167 mls/hr Metolazone (Zaroxolyn) 5 mg PO ONETIME ONE Stop: 12/10/17 08:07 Last Admin: 12/10/17 09:35 Dose: 5 mg Metoprolol Succinate (Toprol Xl) 25 mg PO DAILY [facility] Last Admin: 12/12/17 09:58 Dose: Not Given - Exam General: Alert, Oriented, Cooperative, No Acute Distress HEENT: Pupils Equal, Pupils Reactive Neck: Supple Lungs: Clear to Auscultation, Normal Respiratory Effort Cardiovascular: Regular Rate, Regular Rhythm, No Murmurs GI/Abdominal Exam: Normal Bowel Sounds, Soft, Non-Tender, No Distention Back Exam: Normal Inspection Extremities: Other (Left LE has trace edema. Right is about 2x larger, still erythematous. Per patient much improved, and weeping through dressing has ceased. Dressing not removed at this time.) Psy/Mental Status: Alert, Normal Affect, Normal Mood - Problem List & Annotations (1) Cellulitis SNOMED Code(s): 569763750 Code(s): L03.90 - CELLULITIS, UNSPECIFIED Status: Acute Current Visit: Yes Qualifiers: Site of cellulitis: extremity Laterality: right Annotation/Comment:: Improved per patient report. I am going to change the patient to by mouth Keflex and Bactrim DS tonight and hopefully discharge home on the same tomorrow. (2) Afib SNOMED Code(s): 75297894 Code(s): I48.91 - UNSPECIFIED ATRIAL FIBRILLATION Status: Acute Current Visit: Yes Qualifiers: Atrial fibrillation type: persistent Qualified Code(s): I48.1 - Persistent atrial fibrillation Annotation/Comment:: Currently slightly overly rate control and blood pressure was quite low this morning. I cut his beta zion in half and will discharge him on 12.5 mg daily if he tolerates this until he is seen in follow-up. (3) CHF (congestive heart failure) SNOMED Code(s): 20758636 Code(s): I50.9 - HEART FAILURE, UNSPECIFIED Status: Acute Current Visit: Yes Qualifiers: Heart failure type: systolic Annotation/Comment:: Currently on Lasix 20 twice a day. Continue to monitor renal function. Appears stable. No shortness of breath. (4) HTN (hypertension) SNOMED Code(s): 19910816 Code(s): I10 - ESSENTIAL (PRIMARY) HYPERTENSION Status: Acute Current Visit: Yes Qualifiers: Hypertension type: essential hypertension Qualified Code(s): I10 - Essential (primary) hypertension Annotation/Comment:: As above, hypotensive today. Patient has been aggressively diuresed and I am going to decrease his beta zion slightly. This will likely need to be increased at a later date. (5) LAWRENCE (obstructive sleep apnea) SNOMED Code(s): 78293649 Code(s): G47.33 - OBSTRUCTIVE SLEEP APNEA (ADULT) (PEDIATRIC) Status: Acute Current Visit: Yes Annotation/Comment:: Continue treatment with home machine. (6) CKD (chronic kidney disease) SNOMED Code(s): 332214077 Code(s): N18.9 - CHRONIC KIDNEY DISEASE, UNSPECIFIED Status: Chronic Current Visit: Yes Qualifiers: Chronic kidney disease stage: stage 3 (moderate) Qualified Code(s): N18.3 - Chronic kidney disease, stage 3 (moderate) Annotation/Comment:: Creatinine is still quite a bit higher than his 1.5 baseline. However improved to 1.9 today. (7) PAD (peripheral artery disease) SNOMED Code(s): 282603354, 112169205 Code(s): I73.9 - PERIPHERAL VASCULAR DISEASE, UNSPECIFIED Status: Chronic Current Visit: Yes Annotation/Comment:: Stable. Monitor. - Problem List Review Problem List Initiated/Reviewed/Updated: Yes - My Orders Last 24 Hours: My Active Orders 12/12/17 10:00 Metoprolol Succinate [Toprol XL] 12.5 mg PO DAILY 12/12/17 21:00 Cephalexin [Keflex] 500 mg PO TID Sulfamethoxazole/Trimethoprim [Septra DS] 1 tab PO BID
[2017-12-12] MEDS: Tamsulosin 0.4 MG Cap.ER PO SCH (20:54)
[2017-12-12] MEDS: Cephalexin 500 MG Cap PO SCH (21:18)
[2017-12-12] MEDS: Sulfamethoxazole/Trimethoprim 800-160 MG Tab PO SCH (21:18)
[2017-12-13] MEDS: Furosemide 20 MG Tab PO SCH ×2 (08:30→13:09)
[2017-12-13] MEDS: Aspirin 81 MG Tab.Chew PO SCH (08:31)
[2017-12-13] MEDS: Apixaban 5 MG Tab PO SCH (08:31)
[2017-12-13] MEDS: Docusate Sodium 100 MG Cap PO SCH (08:31)
[2017-12-13] MEDS: Potassium Chloride 20 MEQ Tab.ER PO SCH (08:33)
[2017-12-13] MEDS: Metoprolol Succinate 25 MG Tab.ER PO SCH (08:33)
[2017-12-13] MEDS: Finasteride 5 MG Tab PO SCH (08:33)
[2017-12-13] MEDS: Cholecalciferol (Vitamin D3) 1,000 Unit Tab PO SCH (08:34)
[2017-12-13] MEDS: Cephalexin 500 MG Cap PO SCH (08:36)
[2017-12-13] MEDS: Sulfamethoxazole/Trimethoprim 800-160 MG Tab PO SCH (08:36)
[2017-12-13] MEDS: Acetaminophen 325 MG Tab PO PRN (08:59)
--- NOTE | 2017-12-13 10:42 | PCM.DCSUM1 ---
Discharge Summary - Hospital Course Free Text/Narrative:: Date of admission: 12/09/17 Date of discharge: 12/13/17 Admission diagnosis: Right lower extremity cellulitis, congestive heart failure systolic dysfunction with acute exacerbation on chronic failure. Discharge diagnosis: Same Consults: None Procedures: None History of present illness: This is an 82-year-old male who about 3 weeks prior to started to notice increasing lower extremity swelling. It was worse on the right than the left. He developed weeping blisters on the right leg and it was about twice the size of the left. He finally came in on because he was having fevers and chills and his legs were red and the right one was so swollen and weeping. He was given oral Bactrim and increased lasix and discharged to follow- up the following day in the clinic. The next day he was seen in the clinic and admitted directly for IV antibiotic therapy because he showed no improvement. Hospital Course: Patient did very well throughout hospitalization. Redness, swelling, and weeping decreased and at discharge the patient's legs were almost symmetric and he had minimal weeping. Edema resolved. No systemic symptoms. Tolerated by mouth antibiotics without difficulty. Discharge instructions: Patient discharged to home. Follow-up in 2 days at the clinic for recheck on this right lower leg. Continue antibiotic therapy orally as an outpatient. We' ll also need a basic metabolic panel done at some point in the next week or 2 because of his Lasix change. - Discharge Data Discharge Date: 12/13/17 Discharge Disposition: Home, Self-Care 01 Condition: Good - Discharge Diagnosis/Problem(s) (1) Cellulitis SNOMED Code(s): 020278722 ICD Code: L03.90 - CELLULITIS, UNSPECIFIED Status: Acute Current Visit: Yes Problem Details: Continues to improve. Patient will be discharged on oral Keflex renally dosed twice a day and Bactrim DS. He artery has the Bactrim at home. Told him only to take 5 days worth as he already had 5 days of IV/ inpatient therapy. Qualifiers: Site of cellulitis: extremity Laterality: right (2) Afib SNOMED Code(s): 60799073 ICD Code: I48.91 - UNSPECIFIED ATRIAL FIBRILLATION Status: Acute Current Visit: Yes Problem Details: Beta zion decrease resulted in rate control improvement to low 60s and SBP in 110s range. D/C home on lower dose. Qualifiers: Atrial fibrillation type: persistent Qualified Code(s): I48.1 - Persistent atrial fibrillation (3) CHF (congestive heart failure) SNOMED Code(s): 68823371 ICD Code: I50.9 - HEART FAILURE, UNSPECIFIED Status: Acute Current Visit : Yes Problem Details: Currently on Lasix 20 twice a day. Continue to monitor renal function. Appears stable. No shortness of breath. Qualifiers: Heart failure type: systolic (4) HTN (hypertension) SNOMED Code(s): 61050650 ICD Code: I10 - ESSENTIAL (PRIMARY) HYPERTENSION Status: Acute Current Visit: Yes Problem Details: As above. Qualifiers: Hypertension type: essential hypertension Qualified Code(s): I10 - Essential (primary) hypertension (5) LAWRENCE (obstructive sleep apnea) SNOMED Code(s): 96573261 ICD Code: G47.33 - OBSTRUCTIVE SLEEP APNEA (ADULT) (PEDIATRIC) Status: Acute Current Visit: Yes Problem Details: Continue treatment with home machine. (6) CKD (chronic kidney disease) SNOMED Code(s): 434660632 ICD Code: N18.9 - CHRONIC KIDNEY DISEASE, UNSPECIFIED Status: Chronic Current Visit: Yes Problem Details: Continues to improve. Qualifiers: Chronic kidney disease stage: stage 3 (moderate) Qualified Code(s): N18.3 - Chronic kidney disease, stage 3 (moderate) (7) PAD (peripheral artery disease) SNOMED Code(s): 219843162, 580645648 ICD Code: I73.9 - PERIPHERAL VASCULAR DISEASE, UNSPECIFIED Status: Chronic Current Visit: Yes Problem Details: Stable. Monitor. - Patient Instructions Diet: Heart Healthy Diet, Low Sodium Other/Special Instructions: You were admitted to the hospital because you had a right leg infection and you had fluid overload. We made some changes to your medications. You will need 5 more days of antibiotic therapy with 2 antibiotics. You will take these both morning and night. I decreased your metoprolol dose because your heart rate and blood pressure were low. Please continue to cut this in half until seen by your primary doctor. You may need to increase to a full pill again in the future. We changed your water pill to a lower dose twice daily. Please continue this until seen by your doctor. You may cut your current pills in half. Please see your regular doctor or one of the partners at your usual clinic on Friday for recheck on your wound. - Discharge Plan Prescriptions/Med Rec: Cephalexin [Keflex] 500 mg PO BID #10 cap Furosemide [Lasix] 20 mg PO BIDDIURETIC #60 tablet Metoprolol Succinate [Toprol XL] 12.5 mg PO DAILY #30 tab.er Potassium Chloride [Klor-Con M20] 20 meq PO DAILY #30 tab.er Home Medications: Home Meds Acetaminophen [Tylenol] 325 mg PO Q4H PRN 12/08/17 [History] Apixaban [Eliquis] 2.5 mg PO BID 12/08/17 [History] Aspirin 81 mg PO DAILY 12/08/17 [History] Docusate Sodium [Colace] 100 mg PO DAILY 12/08/17 [History] Finasteride [Proscar] 5 mg PO DAILY 12/08/17 [History] Tamsulosin [Flomax] 0.8 mg PO BEDTIME 12/08/17 [History] Cholecalciferol (Vitamin D3) [Vitamin D3] 1,000 units PO DAILY 12/10/17 [History ] Cephalexin [Keflex] 500 mg PO BID #10 cap 12/13/17 [Rx] Furosemide [Lasix] 20 mg PO BIDDIURETIC #60 tablet 12/13/17 [Rx] Metoprolol Succinate [Toprol XL] 12.5 mg PO DAILY #30 tab.er 12/13/17 [Rx] Potassium Chloride [Klor-Con M20] 20 meq PO DAILY #30 tab.er 12/13/17 [Rx] Sulfamethoxazole/Trimethoprim [Septra DS] 1 tab PO BID tablet 12/13/17 [Rx] Patient Handouts: Heart Failure, [id number], Fall Prevention in Hospitals, Adult, Venous Thromboembolism Prevention - Discharge Summary/Plan Comment DC Time >30 min.: Yes - General Info Date of Service: 12/13/17 Subjective Update: On the day of discharge patient was doing well. He had no chest pain, no shortness of breath, no nausea, no vomiting, no diarrhea. His leg pain was much improved although he still had pain with ambulation particularly in the ankle. - Patient Data Vitals - Most Recent: Last Vital Signs Temp 36.6 C 12/13/17 08:05 Pulse 62 12/13/17 08:33 Resp 18 12/13/17 08:05 BP 109/58 L 12/13/17 08:33 Pulse Ox 96 12/13/17 08:05 Weight - Most Recent: 88.541 kg I&O - Last 24 hours: Intake & Output 12/12/17 12/13/17 12/13/17 22:59 06:59 14:59 Intake Total 500 250 Output Total 900 625 Balance -400 -375 Lab Results - Last 24 hrs: Laboratory Results - last 24 hr 12/13/17 Range/Units 06:40 Sodium 139 (135-145) mmol/L Potassium 3.3 L (3.5-5.3) mmol/L Chloride 101 (100-110) mmol/L Carbon Dioxide 30 (21-32) mmol/L BUN 48 H (7-18) mg/dL Creatinine 1.7 H (0.70-1.30) mg/dL Est Cr Clr Drug Dosing 38.95 mL/min Estimated GFR (MDRD) 39 L (>60) BUN/Creatinine Ratio 28.2 H (9-20) Glucose 107 (80-116) mg/dL Calcium 8.9 (8.6-10.2) mg/dL NORM Results - Last 24 hrs: Microbiology 12/09/17 18:35 Aerobic Blood Culture - Preliminary Blood - Venous - Lab Draw NO GROWTH AFTER 3 DAYS Anaerobic Blood Culture - Preliminary NO GROWTH AFTER 3 DAYS 12/09/17 18:25 Aerobic Blood Culture - Preliminary Blood - Venous NO GROWTH AFTER 3 DAYS Anaerobic Blood Culture - Preliminary NO GROWTH AFTER 3 DAYS Med Orders - Current: Current Medications Acetaminophen (Tylenol) 325 mg PO Q4H PRN PRN Reason: Pain Last Admin: 12/13/17 08:59 Dose: 325 mg Apixaban (Eliquis) 2.5 mg PO BID [facility] Last Admin: 12/13/17 08:31 Dose: 2.5 mg Aspirin (Aspirin) 81 mg PO DAILY [facility] Last Admin: 12/13/17 08:31 Dose: 81 mg Cephalexin (Keflex) 500 mg PO BID [facility] Last Admin: 12/13/17 08:36 Dose: 500 mg Cholecalciferol (Vitamin D3) 2,000 units PO DAILY [facility] Last Admin: 12/13/17 08:34 Dose: 2,000 units Docusate Sodium (Colace) 100 mg PO DAILY [facility] Last Admin: 12/13/17 08:31 Dose: 100 mg Finasteride (Proscar) 5 mg PO DAILY [facility] Last Admin: 12/13/17 08:33 Dose: 5 mg Furosemide (Lasix) 20 mg PO BIDDIURETIC [facility] Last Admin: 12/13/17 08:30 Dose: 20 mg Metoprolol Succinate (Toprol Xl) 12.5 mg PO DAILY [facility] Last Admin: 12/13/17 08:33 Dose: 12.5 mg Ondansetron HCl (Zofran Odt) 4 mg PO Q4H PRN PRN Reason: nausea, able to take PO Potassium Chloride (Klor-Con M20) 20 meq PO DAILY [facility] Last Admin: 12/13/17 08:33 Dose: 20 meq Sodium Chloride (Saline Flush) 10 ml FLUSH ASDIRECTED PRN PRN Reason: Keep Vein Open Last Admin: 12/12/17 10:24 Dose: 10 ml Tamsulosin HCl (Flomax) 0.8 mg PO BEDTIME [facility] Last Admin: 12/12/17 20:54 Dose: 0.8 mg Trimethoprim/Sulfamethoxazole (Septra Ds) 1 tab PO BID [facility] Last Admin: 12/13/17 08:36 Dose: 1 tab Discontinued Medications Acetaminophen (Tylenol) 650 mg PO Q4H PRN PRN Reason: Pain (Mild 1-3)/fever Last Admin: 12/09/17 20:55 Dose: 650 mg Apixaban (Eliquis) 2.5 mg PO BID [facility] Last Admin: 12/09/17 22:28 Dose: 2.5 mg Cefazolin Sodium (Ancef) 1 gm IVPUSH Q12H [facility] Last Admin: 12/12/17 10:25 Dose: 1 gm Furosemide (Lasix) 40 mg IVPUSH BIDDIURETIC [facility] Last Admin: 12/11/17 08:17 Dose: 40 mg Cefazolin Sodium/Dextrose 2 gm (/ Premix) 50 mls @ 100 mls/hr IV Q8H [facility] Last Admin: 12/10/17 09:49 Dose: 100 mls/hr Vancomycin HCl 1,000 mg/ (Sodium Chloride) 250 mls @ 167 mls/hr IV Q12H [facility] Last Admin: 12/12/17 17:17 Dose: Not Given Vancomycin HCl 1,000 mg/Vancomycin HCl 500 mg/ Sodium Chloride 500 mls @ 333.333 mls/hr IV ONETIME ONE Stop: 12/09/17 20:29 Last Admin: 12/09/17 20:45 Dose: 333.333 mls/hr Vancomycin HCl 500 mg/Vancomycin HCl 750 mg/ Sodium Chloride 250 mls @ 167 mls/ hr IV Q24H [facility] Last Admin: 12/11/17 20:29 Dose: 167 mls/hr Metolazone (Zaroxolyn) 5 mg PO ONETIME ONE Stop: 12/10/17 08:07 Last Admin: 12/10/17 09:35 Dose: 5 mg Metoprolol Succinate (Toprol Xl) 25 mg PO DAILY [facility] Last Admin: 12/12/17 09:58 Dose: Not Given - Exam General: Reports: Alert, Oriented, Cooperative, No Acute Distress HEENT: Reports: Pupils Equal, Pupils Reactive Neck: Reports: Supple Lungs: Reports: Clear to Auscultation, Normal Respiratory Effort Cardiovascular: Reports: Regular Rate, No Murmurs, Irregular Rhythm GI/Abdominal Exam: Normal Bowel Sounds, Soft, Non-Tender Extremities: Other (On exam of the lower extremities, both feet are plethoric. No edema. The right still slightly larger than the left. One small area still weeping on the outer right cohen but significantly improved. plug overwrap machine tender to palpation and erythematous to about the knee.) Psy/Mental Status: Reports: Alert, Normal Affect, Normal Mood
== END 2017-12-13 13:10 | disposition home or self-care (01) | DRG 602 ==
LOC: FB.MS 17:17
PROVIDERS: ADMIT Family Medicine; ATTEND Family Medicine
DX: L03.115 Cellulitis of right lower limb (principal); I50.23 Acute on chronic systolic (congestive) heart failure; I13.0 Hypertensive heart and chronic kidney disease with heart failure and stage 1 through stage 4 chronic kidney disease, or unspecified chronic kidney disease; I73.9 Peripheral vascular disease, unspecified; N18.3 Chronic kidney disease, stage 3 (moderate); I25.10 Atherosclerotic heart disease of native coronary artery without angina pectoris; E78.5 Hyperlipidemia, unspecified; G47.33 Obstructive sleep apnea (adult) (pediatric); H54.7 Unspecified visual loss; H91.90 Unspecified hearing loss, unspecified ear; Z86.73 Personal history of transient ischemic attack (TIA), and cerebral infarction without residual deficits; N40.0 Benign prostatic hyperplasia without lower urinary tract symptoms; Z79.82 Long term (current) use of aspirin; Z79.01 Long term (current) use of anticoagulants
CPT/HCPCS: 36415; 71046; 80048; 80053; 83880; 85025; 87040; 93005; A9270-GY; J0690; J1940; J3370; J7040; J7050

== ENCOUNTER 2018-01-11 08:04 | Emergency (ER) | payer MEDICARE, OTHER ==
--- NOTE | 2018-01-11 08:38 | EDM.PDOC ---
ED HPI GENERAL MEDICAL PROBLEM - General Chief Complaint: Lower Extremity Injury/Pain Stated Complaint: PAIN IN LEG Time Seen by Provider: 01/11/18 08:04 Source of Information: Reports: Patient History Limitations: Reports: Physical Impairment - History of Present Illness INITIAL COMMENTS - FREE TEXT/NARRATIVE: 82 y.o.w.m with multiple medical issues including PVD, CRI, drove himself to the ED due to lower leg pain. He could not walk from the Parking lot to the ED because of pain at his right foot. Pt was seen yesterday by his PMD who increased his lasix dosage. On arrival to the ED, pt C/O poorly healing wounds at his left and right lower leg and pain at his right foot. The symptoms started a few days ago, getting worse. Pt was seen by a vascular surgeon about a year ago at [facility], when a "vessel was opened up" and his wound healing improved at that time. There was no pulse palpated and by doppler US at his right dorsali pedis and posterior tibial artery. CAP refill was 2 sec. BP 114/ 67 pulse 80 RR 20 Pulse ox 98% on RA temp. 37 Onset Date: 01/08/18 Onset Time: 19:00 Duration: Day(s):, Getting Worse, Waxing/Waning Location: Reports: Lower Extremity, Left, Lower Extremity, Right Quality: Reports: Ache, Dull, Pressure, Throbbing Improves with: Reports: Rest Worsens with: Reports: Movement Context: Reports: Other (PVD) Associated Symptoms: Reports: Weakness both lower legs Pain Score (Numeric/FACES): 6 - Related Data Allergies Allergy/AdvReac Type Severity Reaction Status Date / Time No Known Allergies Allergy Verified 01/11/18 08:23 Home Meds: Home Meds Acetaminophen [Tylenol] 325 mg PO Q4H PRN 12/08/17 [History] Apixaban [Eliquis] 2.5 mg PO BID 12/08/17 [History] Aspirin 81 mg PO DAILY 12/08/17 [History] Docusate Sodium [Colace] 100 mg PO DAILY 12/08/17 [History] Finasteride [Proscar] 5 mg PO DAILY 12/08/17 [History] Tamsulosin [Flomax] 0.8 mg PO BEDTIME 12/08/17 [History] Cholecalciferol (Vitamin D3) [Vitamin D3] 1,000 units PO DAILY 12/10/17 [History ] Metoprolol Succinate [Toprol XL] 12.5 mg PO DAILY #30 tab.er 12/13/17 [Rx] Potassium Chloride [Klor-Con M20] 20 meq PO DAILY #30 tab.er 12/13/17 [Rx] Furosemide [Lasix] 40 mg PO BIDDIURETIC 01/11/18 [History] Past Medical History HEENT History: Reports: Hard of Hearing, Impaired Vision Cardiovascular History: Reports: Afib, Arrhythmia, Bypass, Heart Failure, SOB on Exertion Respiratory History: Reports: SOB Gastrointestinal History: Reports: None Genitourinary History: Reports: None Musculoskeletal History: Reports: None Neurological History: Reports: CVA Other Neuro History: November 02, 2017-stroke Psychiatric History: Reports: None Endocrine/Metabolic History: Reports: None Hematologic History: Reports: None Immunologic History: Reports: None Oncologic (Cancer) History: Reports: None Dermatologic History: Reports: Cellulitis - Infectious Disease History Infectious Disease History: Reports: Chicken Pox, Measles - Past Surgical History Head Surgeries/Procedures: Reports: None HEENT Surgical History: Reports: Cataract Surgery Cardiovascular Surgical History: Reports: Coronary Artery Bypass Respiratory Surgical History: Reports: None GI Surgical History: Reports: Colonoscopy Male Surgical History: Reports: Other (See Below) Other Male Surgeries/Procedures: some prostate problems and trouble with emepting bladder Endocrine Surgical History: Reports: None Neurological Surgical History: Reports: None Musculoskeletal Surgical History: Reports: None Oncologic Surgical History: Reports: None Dermatological Surgical History: Reports: None Social & Family History - Family History Family Medical History: Unobtainable - Caffeine Use Caffeine Use: Reports: Coffee Review of Systems - Review of Systems Review Of Systems: See Below Constitutional: Reports: Weakness Eyes: Reports: No Symptoms Ears: Reports: No Symptoms Nose: Reports: No Symptoms Mouth/Throat: Reports: No Symptoms Respiratory: Reports: No Symptoms Cardiovascular: Reports: No Symptoms GI/Abdominal: Reports: No Symptoms Genitourinary: Reports: No Symptoms Musculoskeletal: Reports: Leg Pain, Foot Pain, Muscle Pain Skin: Reports: Wound (Left and right lower legs) Neurological: Reports: Weakness Psychiatric: Reports: No Symptoms ED EXAM, GENERAL - Physical Exam Exam: See Below Exam Limited By: Physical Impairment General Appearance: Alert, Mild Distress, Cachetic Eye Exam: Bilateral Eye: Normal Inspection Ears: Normal External Exam Ear Exam: Bilateral Ear: Auricle Normal Nose: Normal Inspection, Normal Mucosa Throat/Mouth: Normal Lips, Normal Voice, No Airway Compromise, Other (poor dentition, dry mucosal membranes) Head: Atraumatic, Normocephalic Neck: Normal Inspection, Supple, Non-Tender, Full Range of Motion Respiratory/Chest: No Respiratory Distress, Lungs Clear, Normal Breath Sounds Cardiovascular: Bradycardia Peripheral Pulses: 0: Posterior Tibial (R), Dorsalis Pedis (R), 1+: Posterior Tibial (L), Dorsalis Pedis (L) GI/Abdominal: Normal Bowel Sounds, Soft, Non-Tender, No Organomegaly, No Abnormal Bruit (Male) Exam: Deferred Rectal (Males) Exam: Deferred Back Exam: Normal Inspection, Full Range of Motion Extremities: Pedal Edema (bilat), Limited Range of Motion Neurological: Alert, Oriented, CN II-XII Intact, Normal Cognition, Abnormal Gait (due to pain R foot) Psychiatric: Normal Affect, Normal Mood Skin Exam: Erythema, Rash, Wound/Incision (poor healing wouns right and left lower legs) Lymphatic: No Adenopathy EKG INTERPRETATION EKG Date: 01/11/18 Time: 12:10 Rhythm: A-Fib [place]: Other (LPFB) P-Wave: Absent QRS: RBBB ST-T: Normal QT: Prolonged Comparison: NA - No Prior EKG EKG Interpretation Comments: low voltage ECG Course - Vital Signs Text/Narrative:: 82 y.o.w.m with multiple medical issues including PVD, CRI, drove himself to the ED due to lower leg pain. He could not walk from the Parking lot to the ED because of pain at his right foot. Pt was seen yesterday by his PMD who increased his lasix dosage. On arrival to the ED, pt C/O poorly healing wounds at his left and right lower leg and pain at his right foot. The symptoms started a few days ago, getting worse. Pt was seen by a vascular surgeon about a year ago at [facility], when a "vessel was opened up" and his wound healing improved at that time. There was no pulse palpated and by doppler US at his right dorsali pedis and posterior tibial artery. CAP refill was 2 sec. BP 114/ 67 pulse 80 RR 20 Pulse ox 98% on RA temp. 37 PE: 82 y.o.w.m with poor lower PVD poor healing ulcers, no pulse right distal lower extremity. 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 artery, no pulse right dorsalis pedis CRI, H/O HTN. Bilt lower extremity cellulitis. Multiple medical issues. 9.49 am Consultation: Dr. Membreno/Neel Vascular surgeon/hospitalist, [facility]: Accepted the pt for admission and further care. Tx: pt refused pain meds. Plan: Transfer to [facility]. Last Recorded V/S: Last Vital Signs Temp 36.7 C 01/11/18 10:41 Pulse 59 L 01/11/18 10:41 Resp 20 01/11/18 10:41 BP 106/81 01/11/18 10:41 Pulse Ox 100 01/11/18 10:41 - Orders/Labs/Meds Orders: Active Orders 24 hr Category Date Time Status CULTURE BLOOD [BC] Urgent Lab 01/11/18 08:50 Received CULTURE BLOOD [BC] Urgent Lab 01/11/18 08:55 Received Blood Culture x2 Reflex Set [OM.PC] Urgent Oth 01/11/18 08:36 Ordered EKG 12 Lead [EK] Routine Ther 01/11/18 10:08 Ordered Labs: Laboratory Tests 01/11/18 01/11/18 01/11/18 Range/Units 08:50 08:50 08:50 WBC 14.3 H (4.5-12.0) X10-3/uL RBC 4.26 L (4.30-5.75) x10(6)uL Hgb 13.8 (11.5-15.5) g/dL Hct 41.2 (30.0-51.3) % MCV 96.7 H (80-96) fL MCH 32.5 (27.7-33.6) pg MCHC 33.6 (32.2-35.4) g/dL RDW 13.7 (11.5-15.5) % Plt Count 104 L (125-369) X10(3)uL MPV 10.8 H (7.4-10.4) fL Add Manual Diff Yes Neutrophils % (Manual) 91 H (46-82) % Band Neutrophils % 1 (0-6) % Lymphocytes % (Manual) 5 L (13-37) % Monocytes % (Manual) 3 L (4-12) % PT 13.3 H (8.7-11.1) INR 1.37 H (0.89-1.13) Sodium 137 (135-145) mmol/L Potassium 3.8 (3.5-5.3) mmol/L Chloride 100 (100-110) mmol/L Carbon Dioxide 32 (21-32) mmol/L BUN 38 H D (7-18) mg/dL Creatinine 1.9 H (0.70-1.30) mg/dL Est Cr Clr Drug Dosing 34.85 mL/min Estimated GFR (MDRD) 34 L (>60) BUN/Creatinine Ratio 20.0 (9-20) Glucose 103 (80-116) mg/dL Calcium 8.6 (8.6-10.2) mg/dL Departure - Departure Time of Disposition: 10:24 Disposition: DC/Tfer to Critical Access [facility] Condition: Fair Clinical Impression: PVD (peripheral vascular disease) with claudication - Discharge Information Referrals: Karthik Newell MD [Primary Care Provider] - Forms: ED Department Discharge - My Orders Last 24 Hours: My Active Orders 01/11/18 08:36 Blood Culture x2 Reflex Set [OM.PC] Urgent 01/11/18 08:50 CULTURE BLOOD [BC] Urgent 01/11/18 08:55 CULTURE BLOOD [BC] Urgent 01/11/18 10:08 EKG 12 Lead [EK] Routine - Assessment/Plan Last 24 Hours: My Active Orders 01/11/18 08:36 Blood Culture x2 Reflex Set [OM.PC] Urgent 01/11/18 08:50 CULTURE BLOOD [BC] Urgent 01/11/18 08:55 CULTURE BLOOD [BC] Urgent 01/11/18 10:08 EKG 12 Lead [EK] Routine
== END 2018-01-11 10:41 | disposition critical access hospital (66) ==
LOC: FB.ED 08:04
DX: I49.3 Ventricular premature depolarization (principal); I73.9 Peripheral vascular disease, unspecified; L03.116 Cellulitis of left lower limb; L03.115 Cellulitis of right lower limb; I25.810 Atherosclerosis of coronary artery bypass graft(s) without angina pectoris; Z95.1 Presence of aortocoronary bypass graft; I11.0 Hypertensive heart disease with heart failure; Z79.82 Long term (current) use of aspirin; Z79.899 Other long term (current) drug therapy; Z86.73 Personal history of transient ischemic attack (TIA), and cerebral infarction without residual deficits
CPT/HCPCS: 36415; 80048; 85025; 85610; 87040; 93005; 93010; 99284

== ENCOUNTER 2019-06-18 10:53 | Emergency (ER) | payer MEDICARE, OTHER ==
[2019-06-18] MEDS ORDERED: Sodium Chloride 0.9% 10 ML Syringe FLUSH PRN (11:01)
[2019-06-18] MEDS ORDERED: Albuterol/Ipratropium 3.0-0.5 MG/3 ML Neb Soln NEB ONE (11:12)
--- NOTE | 2019-06-18 14:09 | EDM.PDOC ---
ED HPI GENERAL MEDICAL PROBLEM - General Chief Complaint: Cardiovascular Problem Stated Complaint: weakness,dizziness Time Seen by Provider: 06/18/19 10:55 Source of Information: Reports: Patient History Limitations: Reports: No Limitations - History of Present Illness INITIAL COMMENTS - FREE TEXT/NARRATIVE: Patient presented to the ED because of generalized body weakness,increasing dyspnea and cough for 1 week. The cough is mostly non-productive, denies having any fever or chills. There is no chest pain,N/V. He was having an echocardiogram and was found to be bradycardic with HR of 40's with near syncopal episode. - Related Data Allergies Allergy/AdvReac Type Severity Reaction Status Date / Time No Known Allergies Allergy Verified 01/11/18 08:23 Home Meds: Home Meds Acetaminophen [Tylenol] 325 mg PO Q4H PRN 12/08/17 [History] Apixaban [Eliquis] 2.5 mg PO BID 12/08/17 [History] Aspirin 81 mg PO DAILY 12/08/17 [History] Docusate Sodium [Colace] 100 mg PO DAILY 12/08/17 [History] Finasteride [Proscar] 5 mg PO DAILY 12/08/17 [History] Tamsulosin [Flomax] 0.8 mg PO BEDTIME 12/08/17 [History] Cholecalciferol (Vitamin D3) [Vitamin D3] 1,000 units PO DAILY 12/10/17 [History ] Metoprolol Succinate [Toprol XL] 12.5 mg PO DAILY #30 tab.er 12/13/17 [Rx] Potassium Chloride [Klor-Con M20] 20 meq PO DAILY #30 tab.er 12/13/17 [Rx] Furosemide [Lasix] 40 mg PO BIDDIURETIC 01/11/18 [History] Past Medical History HEENT History: Reports: Hard of Hearing, Impaired Vision Cardiovascular History: Reports: Afib, Arrhythmia, Bypass, Heart Failure, SOB on Exertion Respiratory History: Reports: SOB Gastrointestinal History: Reports: None Genitourinary History: Reports: None Musculoskeletal History: Reports: None Neurological History: Reports: CVA Other Neuro History: November 02, 2017-stroke Psychiatric History: Reports: None Endocrine/Metabolic History: Reports: None Hematologic History: Reports: None Immunologic History: Reports: None Oncologic (Cancer) History: Reports: None Dermatologic History: Reports: Cellulitis - Infectious Disease History Infectious Disease History: Reports: Chicken Pox, Measles - Past Surgical History Head Surgeries/Procedures: Reports: None HEENT Surgical History: Reports: Cataract Surgery Cardiovascular Surgical History: Reports: Coronary Artery Bypass Respiratory Surgical History: Reports: None GI Surgical History: Reports: Colonoscopy Male Surgical History: Reports: Other (See Below) Other Male Surgeries/Procedures: some prostate problems and trouble with emepting bladder Endocrine Surgical History: Reports: None Neurological Surgical History: Reports: None Musculoskeletal Surgical History: Reports: None Oncologic Surgical History: Reports: None Dermatological Surgical History: Reports: None Social & Family History - Family History Family Medical History: Unobtainable - Tobacco Use Smoking Status *Q: Never Smoker - Caffeine Use Caffeine Use: Reports: Coffee ED ROS GENERAL - Review of Systems Review Of Systems: See Below Constitutional: Reports: No Symptoms HEENT: Reports: No Symptoms Respiratory: Reports: Shortness of Breath, Wheezing, Cough. Denies: Pleuritic Chest Pain, Sputum Cardiovascular: Reports: No Symptoms Endocrine: Reports: No Symptoms GI/Abdominal: Reports: No Symptoms : Reports: No Symptoms Musculoskeletal: Reports: No Symptoms Skin: Reports: No Symptoms Neurological: Reports: No Symptoms Psychiatric: Reports: No Symptoms ED EXAM, GENERAL - Physical Exam Exam: See Below Exam Limited By: No Limitations General Appearance: Alert, WD/WN, No Apparent Distress Nose: Normal Inspection, Normal Mucosa Throat/Mouth: Normal Inspection, Normal Lips, Normal Teeth, Normal Gums, Normal Oropharynx Head: Atraumatic, Normocephalic Neck: Normal Inspection, Supple, Non-Tender, Full Range of Motion Respiratory/Chest: Rhonchi, Wheezing, Other (decrease BS-bilateral). No: Crackles Cardiovascular: Normal Peripheral Pulses, No Edema, No Gallop, No JVD, No Murmur , No Rub, Irregularly Irregular GI/Abdominal: Normal Bowel Sounds, Soft, Non-Tender, No Organomegaly, No Distention, No Abnormal Bruit, No Mass, Pelvis Stable Back Exam: Normal Inspection, Full Range of Motion Extremities: Normal Inspection, Normal Range of Motion, Non-Tender, No Pedal Edema Course - Vital Signs Text/Narrative:: labs,EKG/CXR reviewed with patient and with full understanding Patient and his daughter want him to be transferred to [place] [id number] with significant relief of his dyspnea Last Recorded V/S: Last Vital Signs Temp 36.3 C 06/18/19 10:53 Pulse 83 06/18/19 10:53 Resp 17 06/18/19 10:53 BP 118/46 L 06/18/19 10:53 Pulse Ox 90 L 06/18/19 10:53 - Orders/Labs/Meds Orders: Active Orders 24 hr Category Date Time Status EKG Documentation Completion [RC] ASDIRECTED Care 06/18/19 10:57 Active RT Aerosol Therapy [RC] ASDIRECTED Care 06/18/19 11:12 Active Chest 1V Frontal [CR] Stat Exams 06/18/19 11:14 Taken Sodium Chloride 0.9% [Saline Flush] Med 06/18/19 11:01 Active 10 ml FLUSH ASDIRECTED PRN Saline Lock Insert [OM.PC] Routine Oth 06/18/19 11:01 Ordered EKG 12 Lead [EK] Routine Ther 06/18/19 10:56 Ordered Medication Orders Sodium Chloride (Saline Flush) 10 ml FLUSH ASDIRECTED PRN PRN Reason: Keep Vein Open Last Admin: 06/18/19 11:20 Dose: 10 ml Labs: Laboratory Tests 06/18/19 06/18/19 06/18/19 Range/Units 11:10 11:10 11:10 WBC 5.4 (4.5-12.0) X10-3/uL RBC 4.34 (4.30-5.75) x10(6)uL Hgb 13.6 (13.5-17.8) g/dL Hct 40.9 (30.0-51.3) % MCV 94.3 (80-96) fL MCH 31.3 (27.7-33.6) pg MCHC 33.2 (32.2-35.4) g/dL RDW 13.8 (11.5-15.5) % Plt Count 120 L (125-369) X10(3)uL MPV 10.8 H (7.4-10.4) fL Neut % (Auto) 77.5 (46-82) % Lymph % (Auto) 8.9 L (13-37) % [place] % (Auto) 10.7 (4-12) % Eos % (Auto) 2 (1.0-5.0) % Baso % (Auto) 1 (0-2) % Neut # (Auto) 4.2 (1.6-8.3) # Lymph # (Auto) 0.5 L (0.6-5.0) # [place] # (Auto) 0.6 (0.0-1.3) # Eos # (Auto) 0.1 (0.0-0.8) # Baso # (Auto) 0.0 (0.0-0.2) # Sodium (135-145) mmol/L Potassium (3.5-5.3) mmol/L Chloride (100-110) mmol/L Carbon Dioxide (21-32) mmol/L BUN (7-18) mg/dL Creatinine (0.70-1.30) mg/dL Est Cr Clr Drug Dosing Estimated GFR (MDRD) (>60) BUN/Creatinine Ratio (9-20) Glucose (80-116) mg/dL Calcium (8.6-10.2) mg/dL Magnesium 2.7 H (1.8-2.5) mg/dL Total Bilirubin (0.1-1.3) mg/dL AST (5-25) IU/L ALT (12-36) U/L Alkaline Phosphatase (56-112) IU/L Troponin I 0.033 (<0.017-0.056) ng/mL NT-Pro-B Natriuret Pep 16597 H* (<=450) pg/mL Total Protein (6.0-8.0) g/dL Albumin (3.2-4.6) g/dL Globulin g/dL Albumin/Globulin Ratio 06/18/19 Range/Units 11:10 WBC (4.5-12.0) X10-3/uL RBC (4.30-5.75) x10(6)uL Hgb (13.5-17.8) g/dL Hct (30.0-51.3) % MCV (80-96) fL MCH (27.7-33.6) pg MCHC (32.2-35.4) g/dL RDW (11.5-15.5) % Plt Count (125-369) X10(3)uL MPV (7.4-10.4) fL Neut % (Auto) (46-82) % Lymph % (Auto) (13-37) % [place] % (Auto) (4-12) % Eos % (Auto) (1.0-5.0) % Baso % (Auto) (0-2) % Neut # (Auto) (1.6-8.3) # Lymph # (Auto) (0.6-5.0) # [place] # (Auto) (0.0-1.3) # Eos # (Auto) (0.0-0.8) # Baso # (Auto) (0.0-0.2) # Sodium 142 (135-145) mmol/L Potassium 3.9 (3.5-5.3) mmol/L Chloride 103 (100-110) mmol/L Carbon Dioxide 30 (21-32) mmol/L BUN 49 H D (7-18) mg/dL Creatinine 2.3 H* (0.70-1.30) mg/dL Est Cr Clr Drug Dosing TNP Estimated GFR (MDRD) 27 L (>60) BUN/Creatinine Ratio 21.3 H (9-20) Glucose 98 (80-116) mg/dL Calcium 9.4 (8.6-10.2) mg/dL Magnesium (1.8-2.5) mg/dL Total Bilirubin 1.6 H (0.1-1.3) mg/dL AST 37 H D (5-25) IU/L ALT 30 D (12-36) U/L Alkaline Phosphatase 140 H (56-112) IU/L Troponin I (<0.017-0.056) ng/mL NT-Pro-B Natriuret Pep (<=450) pg/mL Total Protein 7.3 (6.0-8.0) g/dL Albumin 3.7 (3.2-4.6) g/dL Globulin 3.6 g/dL Albumin/Globulin Ratio 1.0 Meds: Medications Generic Name Dose Route Start Last Admin Trade Name Freq PRN Reason Stop Dose Admin Sodium Chloride 10 ml 06/18/19 11:01 06/18/19 11:20 Saline Flush FLUSH 10 ml ASDIRECTED PRN Administration Keep Vein Open Discontinued Medications Generic Name Dose Route Start Last Admin Trade Name Freq PRN Reason Stop Dose Admin Albuterol/Ipratropium 3 ml 06/18/19 11:12 06/18/19 11:23 Duoneb 3.0-0.5 Mg/3 Ml NEB 06/18/19 11:13 3 ml ONETIME ONE Administration Departure - Departure Time of Disposition: 12:20 Disposition: DC/Tfer to Acute Hospital 02 Reason for Transfer *Q: Other ([facility] Level of Care-cardiology) Condition: Good Clinical Impression: CHF (congestive heart failure) Qualifiers: Heart failure type: systolic Afib Qualifiers: Atrial fibrillation type: persistent Qualified Code(s): I48.1 - Persistent atrial fibrillation Referrals: Karthik Newell MD [Primary Care Provider] - Forms: ED Department Discharge - My Orders Last 24 Hours: My Active Orders 06/18/19 10:56 EKG 12 Lead [EK] Routine 06/18/19 10:57 EKG Documentation Completion [RC] ASDIRECTED 06/18/19 11:01 Sodium Chloride 0.9% [Saline Flush] 10 ml FLUSH ASDIRECTED PRN Saline Lock Insert [OM.PC] Routine 06/18/19 11:12 RT Aerosol Therapy [RC] ASDIRECTED 06/18/19 11:14 Chest 1V Frontal [CR] Stat - Assessment/Plan Last 24 Hours: My Active Orders 06/18/19 10:56 EKG 12 Lead [EK] Routine 06/18/19 10:57 EKG Documentation Completion [RC] ASDIRECTED 06/18/19 11:01 Sodium Chloride 0.9% [Saline Flush] 10 ml FLUSH ASDIRECTED PRN Saline Lock Insert [OM.PC] Routine 06/18/19 11:12 RT Aerosol Therapy [RC] ASDIRECTED 06/18/19 11:14 Chest 1V Frontal [CR] Stat
== END 2019-06-18 14:25 ==
LOC: FB.ED 10:53
DX: I50.20 Unspecified systolic (congestive) heart failure (principal); I48.19 Other persistent atrial fibrillation; Z86.73 Personal history of transient ischemic attack (TIA), and cerebral infarction without residual deficits; Z79.01 Long term (current) use of anticoagulants; Z79.82 Long term (current) use of aspirin; Z79.899 Other long term (current) drug therapy
CPT/HCPCS: 36415; 71045; 80053; 83735; 83880; 84484; 85025; 93005; 94640; 99285-25; J7620-GY